=== PATIENT | male | born 1950 | race Caucasian/White ===

== ENCOUNTER 2025-03-24 09:53 | Day surgery (SDC) | payer MEDICARE, SELFPAY ==
[2025-03-24] VITALS (13 sets, daily range): BP systolic 122–173; BP diastolic 67–82; PULSE 58–66; RESP 18; TEMP 36.6–36.9; O2SAT 95–98; BMI 24.7
--- NOTE | 2025-03-24 | CA_ITS ---
APPROVED REPORT EXAM: Comprehensive 2D, Doppler, and color-flow Echocardiogram [employer] Professor: Alta Larios CRT Ht: 6 ft 0 in Wt: 175lbs BSA: 2.01 BP: 124/78 mmHg Indications: DYSNPEA 2D Dimensions LA Volume 45.30 mL LA Volume Index 22.00 mL/m2 (M/F) 16-34 M-Mode Dimensions RVDd 2.44 cm (0.9-2.6) LA Diam 3.28 cm (1.9-4.0) LVDd 4.22 cm (3.5-5.7) LVDs 2.62 cm (3.5-5.7) IVSd 1.41 cm (0.6-1.1) PWd 0.68 cm (0.6-1.1) EF (Teich) 68.40% FS 37.90% EDV (Teich) 79.50 mL TAPSE 2.04 (<1.7) ESV (Teich) 25.10 mL LV Diastology E Decel Time 457 (160-240 msec) E/A Ratio 0.65 MED A' 11.70 cm/s LAT A' 11.60 cm/s Aortic Valve ASHISH Index 1.17 cm2/m2 AoV Peak Gerald. 238.0 (50-130 cm/s) AO Peak GR. 22.60 mmHg AO Mean GR. 13.80 (<5 mmHg) AO VTI 53.2 (18-25 cm) ASHISH (VTI) 2.42 (2.5-4.5 cm2) Mitral Valve MV A Velocity 95.0 (40-130 cm/s) E/A Ratio 0.65 Pulmonary Valve PV Peak Velocity 146.0 (50-150 cm/s) Tricuspid Valve TR P. Velocity 191.00 cm/s RAP Estimate 10.00 mmHg RVSP 24.50 mmHg Left Ventricle The left ventricle is normal size. The left ventricular systolic function is normal. The left ventricular ejection fraction is within the normal range. There is increased LV wall thickness. There is normal LV segmental wall motion. Transmitral Doppler flow pattern suggests impaired LV relaxation. LVEF is 55%. Right Ventricle The right ventricle is normal size. The right ventricular systolic function is normal. Atria The left atrium size is normal. The right atrium size is normal. There is no Doppler evidence of interatrial shunt. Aortic Valve The aortic valve is moderately thickened. Aortic sclerosis is present. Borderline aortic stenosis is present. Peak velocity 2.5 m/s. Mean AV gradient 14 mmHg. Max AV gradient 26 mmHg. Trace aortic regurgitation. Mitral Valve The mitral valve leaflets are mildly thickened. No evidence of mitral valve stenosis. Trace mitral regurgitation. Tricuspid Valve Tricuspid valve is grossly normal in structure and function. Trace tricuspid regurgitation. There is insufficient TR jet to estimate RVSP. Pulmonic Valve The pulmonary valve is normal in structure. Trace pulmonic regurgitation. Great Vessels The aortic root is normal in size. IVC is normal in size and collapses >50% with inspiration. Pericardium There is no pericardial effusion. Other Information Study Quality: Fair Conclusion Normal biventricular systolic function. Aortic sclerosis is present, but no hemodynamically significant (borderline on quantitative parameters). Electronically signed by : Donna Maguire MD 03/24/2025 18:22:56
--- NOTE | 2025-03-24 07:11 | IR_ITS ---
APPROVED REPORT Patient Location: Outpatient PROCEDURES 1. Left heart catheterization 2. Selective coronary arteriography 3. Left ventriculography INDICATION 1. Angina pectoris, 2. Abnormal Myoview, 3. Coronary artery disease SCAI INDICATION Patient is 74-year-old white male who presented with chest pain. Known coronary artery disease. Underwent Myoview which came back abnormal. Secondary to this referred for left heart catheterization Informed consent was obtained prior to the procedure. COMPLICATIONS NONE Estimated Blood Loss: LESS THAN 10 ML TECHNIQUE One percent lidocaine used to anesthetize the right anterior aspect of the wrist. The right radial artery was accessed via the Seldinger technique. A 6 Somali sheath was placed in the right radial artery. 2.5 mg of Verapamil, 800 mcg of nitroglycerin, 1mg Lidocaine and 5000 U Heparin were given through the arterial sheath. The Poppa catheter was also used to perform left heart catheterization, left ventriculogram and selective coronary angiogram. At the end of the procedure the sheath was removed good hemostasis was achieved using Traclet band, patient was transferred to the postop holding area in stable condition. ANGIOGRAPHIC RESULTS The left main artery Angiographically normal The left anterior descending artery Had smooth eccentric 20% proximal stenosis followed by smooth diffuse 20% mid stenosis. 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 There was 50% stenosis of the very distal left anterior descending at the apex. First diagonal branch with smooth 20% mid stenosis. The circumflex artery Was a moderate-sized vessel. Smooth 20% proximal stenosis. 100% ostial occlusion of the large obtuse marginal branch of the circumflex which had multiple stents placed not only in the obtuse marginal but a branch of the obtuse marginal. The distal vessel was being fed via left to left collaterals. Small in size. True circumflex itself was angiographically normal past the 100% occlusion of the first obtuse marginal branch The right coronary artery Large and dominant. Smooth eccentric 30% mid stenosis. Normal bifurcation to the large posterior lateral branch and posterior descending artery. Posterior descending artery with diffuse 20% proximal and mid stenosis. The posterior lateral branch had a 30% napkin ring mid stenosis The SIDDIQUI ventriculogram reveals Normal left ventricular systolic function with an ejection fraction of 55 to 60%. No wall motion abnormalities The left ventricular end-diastolic pressure 15 IMPRESSION 1. Severe one-vessel coronary disease with 100% occlusion ostial of the first obtuse marginal branch of the circumflex 2. Left to left collaterals filling the small occluded obtuse marginal branch after stents that were also occluded 3. Mild diffuse disease noted throughout the left anterior descending with moderate disease at the apex 4. Mild diffuse disease in the right coronary artery with normal flow to the large posterior descending artery and posterolateral branches 5. Normal left ventricular systolic function 6. Normal left ventricular end-diastolic pressure 7. Successful placement of a radial band on the right radial artery PLAN 1. Patient will continue with aggressive medical therapy. No further cardiac testing will be needed prior to any surgical procedure. The occlusion of the circumflex is in the obtuse marginal branch and a blunt occlusion. There is already multiple stents placed throughout that vessel in its proximal/midportion as well as a branch. These are all occluded with left to left collaterals filling the small distal vessel. There is no validity and opening that up at present time. We will continue with aggressive medical therapy. His left ventricular function is preserved. Follow-up in cardiology clinic in 1 to 2 weeks for further evaluation and treatment Electronically signed by : Georgi Mchugh MD 03/24/2025 14:56:18
[2025-03-24 11:05] LABS: Basophils # 0.1 K/mm3 (0-0.2); Basophils % 1.1 % (0.1-2.0); Eosinophils # 0.2 Kmm3 (0.0-0.4); Hematocrit 45.6 % (42.0-52.0); Hemoglobin 15.9 g/dL (14.1-18.0); Immature Granulocytes # 0.01 10^3uL; Immature Granulocytes % 0.2 %; Lymphocytes # 1.7 K/mm3 (0.7-4.5); Lymphocytes % 29.7 % (10-50); Mean Corpuscular HGB Conc 34.9 g/dL (31.8-35.4); Mean Corpuscular Hemoglobin 32.9 pg (27.0-31.2); Mean Corpuscular Volume 94.4 fl (80-94); Mean Platelet Volume 10.8 fl (7.4-10.4); Monocytes # 0.6 K/mm3 (0.1-1.0); Monocytes % 10.7 % (1.7-9.3); Neutrophils # 3.1 K/mm3 (1.8-7.8); Neutrophils % 55.3 % (37.0-80.0); Nucleated Red Blood Cells # 0 10^3/uL; Nucleated Red Blood Cells % 0 %; Platelet Count 230 K/mm3 (142-424); Red Blood Count 4.83 M/mm3 (4.60-6.20); Red Cell Distribution Width 11.9 % (11.5-17.5); Red Cell Distribution Width-SD 40.9 fL; White Blood Count 5.6 K/mm3 (4.8-10.8)
[2025-03-24 11:17] LABS: Chloride 103 mmol/L (98-107); Potassium 4.1 mmoL/L (3.5-5.1); Sodium 137 mmol/L (136-145)
[2025-03-24 11:20] LABS: Anion Gap 10.1 mEq/L (5-15); Blood Urea Nitrogen 15 mg/dl (9-20); Calcium 9.6 mg/dl (8.4-10.2); Carbon Dioxide 28 mmol/L (22.0-30.0); Creatinine Clearance Estimated 72 mL/min (50-200); Estimated Glomerular Filt Rate 131 ml/min (>60); GFR (African American) 159 ML/MIN (>60); Glucose 308 mg/dl (74-100)
[2025-03-24] MEDS: VERAPAMIL 2.5MG/ML 2ML VIAL 2.5 MG IV (14:26)
[2025-03-24] MEDS: LIDOCAINE 1% 10ML MDV 10 ML IJ (14:26)
[2025-03-24] MEDS: HEPARIN 1,000 UNITS/ML 10ML VIAL (CATH LAB) 5000 UNIT IV (14:26)
[2025-03-24] MEDS: HEPARIN 1,000 UNITS/500ML NS (CATH LAB) 3000 UNIT IV (14:26)
[2025-03-24] MEDS: 0.9 % SODIUM CHLORIDE 500 ML 25 ML IV (14:26)
[2025-03-24] MEDS: diphenhydrAMINE 50MG/ML VIAL 50 MG IV (14:26)
[2025-03-24] MEDS: NITROGLYCERIN 800MCG/8ML SYR (CATH LAB) 800 MCG IA (14:27)
[2025-03-24] MEDS: MIDAZOLAM HCL 1MG/ML 5ML VIAL 1 MG IV (14:38)
[2025-03-24] MEDS: FENTANYL 100MCG/2ML VIAL 50 MCG IV (14:38)
[2025-03-24] MEDS: IOPAMIDOL-370 (76%);100ML BOTTLE 50 ML IV (14:59)
== END 2025-03-24 18:00 | disposition home or self-care (01) ==
LOC: RT 09:55 → CATHLAB 11:04
PROVIDERS: Internal Medicine; PCP Family Medicine; Visit Provider Internal Medicine Cardiovascular Disease
PROC: 4A023N7 Measurement of Cardiac Sampling and Pressure, Left Heart, Percutaneous Approach (ICD-10-PCS; CPT 93452; principal; 2025-03-24 14:00)
DX: I25.118 Atherosclerotic heart disease of native coronary artery with other forms of angina pectoris (principal); R93.1 Abnormal findings on diagnostic imaging of heart and coronary circulation; E78.5 Hyperlipidemia, unspecified; I70.213 Atherosclerosis of native arteries of extremities with intermittent claudication, bilateral legs; I48.0 Paroxysmal atrial fibrillation; I11.0 Hypertensive heart disease with heart failure; I50.32 Chronic diastolic (congestive) heart failure; I65.23 Occlusion and stenosis of bilateral carotid arteries; I34.0 Nonrheumatic mitral (valve) insufficiency; F17.210 Nicotine dependence, cigarettes, uncomplicated; Z79.01 Long term (current) use of anticoagulants; Z79.84 Long term (current) use of oral hypoglycemic drugs; Z79.02 Long term (current) use of antithrombotics/antiplatelets; Z79.82 Long term (current) use of aspirin; Z79.899 Other long term (current) drug therapy; Z82.49 Family history of ischemic heart disease and other diseases of the circulatory system; Z82.3 Family history of stroke
CPT/HCPCS: 93458; 80048; 85025; 93306; 99152; C1725; C1769; J1200; J1644; J2003; J2250; J3010; J7040; Q9967